=== PATIENT | male | born 1985 | race American Indian/Alaskan Native ===

== ENCOUNTER 2018-12-30 11:39 | Emergency (ER) | payer MEDICAID, OTHER ==
[2018-12-30] MEDS ORDERED: Diphtheria,Pertussis(Acell),Tetanus Vaccine 0.5 ML Syringe IM ONE (11:50)
[2018-12-30] MEDS ORDERED: Acetaminophen/HYDROcodone 325-5 MG Tab PO ONE (11:59)
[2018-12-30] MEDS ORDERED: ceFAZolin 1 GM in Premix Bag 1 BAG IV ONE (12:31)
[2018-12-30] MEDS ORDERED: LORazepam 2 MG/ML SDV IVPUSH ONE (12:39)
--- NOTE | 2018-12-30 12:39 | EDM.PDOC ---
ED HPI GENERAL MEDICAL PROBLEM - General Chief Complaint: Laceration Stated Complaint: CUT ON RT HAND Time Seen by Provider: 12/30/18 11:43 Source of Information: Reports: Patient History Limitations: Reports: No Limitations - History of Present Illness INITIAL COMMENTS - FREE TEXT/NARRATIVE: HISTORY AND PHYSICAL: History of present illness: Patient is a 33-year-old male who presents to the emergency room with complaints of a laceration to the left palmar surface of his hand. He states that he was trying to unjam a nail gun when the nail hit the left hand near the base of the left thumb. Bleeding is controlled with pressure. Patient has exquisite tenderness with palpation. Denies any numbness or tingling in the distal digit. Unsure of his last tetanus Patient denies any fever, chills, headache, change in vision, syncope or near syncope. Denies any chest pain, back pain, shortness of breath or cough. Denies any abdominal pain, nausea, vomiting, diarrhea, constipation or dysuria. Has not noted any blood in urine or stool. Patient has been eating and drinking appropriately. Review of systems: As per history of present illness and below otherwise all systems reviewed and negative. Past medical history: As per history of present illness and as reviewed below otherwise noncontributory. Surgical history: As per history of present illness and as reviewed below otherwise noncontributory. Social history: See social history for further information Family history: As per history of present illness and as reviewed below otherwise noncontributory. Physical exam: General: Well-developed and well-nourished 33-year-old male. Alert and oriented. Nontoxic appearing, very anxious and appears uncomfortable. HEENT: Atraumatic, normocephalic, pupils equal and reactive bilaterally, negative for conjunctival pallor or scleral icterus, mucous membranes moist, TMs normal bilaterally, throat clear, neck supple, nontender, trachea midline. No drooling or trismus noted. No meningeal signs. No hot potato voice noted. Lungs: Clear to auscultation, breath sounds equal bilaterally, chest nontender. Heart: S1S2, regular rate and rhythm without overt murmur Abdomen: Soft, nondistended, nontender. Pelvis: Stable nontender. Genitourinary: Deferred. Rectal: Deferred. Skin: "X" shaped laceration wound to the palmar surface of left hand near the base of the thumb. Otherwise skin is intact, warm, dry. No lesions or rashes noted. Extremities: See SKIN. Moves all extremities per self with difficulty or deficits, appears to have no tendon involvement. Able to make closed fist and open/extend hand. Neurovascular unremarkable. Neuro: Awake, alert, oriented. Cranial nerves II through XII unremarkable. Cerebellum unremarkable. Motor and sensory unremarkable throughout. Exam nonfocal. Notes: X-ray shows that there is foreign material in the laceration wound. Radiology describes a bandlike metallic density projecting over the lower aspect of the fifth metacarpal with adjacent soft tissue swelling. This is not visible when cleansing the area. 1% lidocaine was used to anesthetize the area. Patient did not tolerate 1230: Dr. Monique Aceves was consulted on this case. She is currently in surgery and unavailable to approximately 3 PM. Patient will wait in the emergency room and kept comfortable until she is able to evaluate this patient. Moist, sterile, gentle pressure dressing was applied to the lacerated area. Patient is very restless in the room. He states he is very anxious about "getting my hand fixed". We'll give him 1 mg of Ativan while he is waiting for comfort purposes. Vital signs remain stable. Significant other remains at bedside. Patient is resting easily and quiet on the cot with his eyes closed. Vital signs remain stable. Waiting the hand surgeon for reevaluation. 1500: Dr Aceves here to see patient. Ketan was able to removed the FB along with wound repair Dr. Aceves wrote prescriptions for the patient and discussed discharge instructions we'll have the patient follow up with her in 2 weeks. Supportive care measures were reviewed and discussed. Voices understanding and is agreeable to plan of care. Denies any further questions or concerns at this time. Diagnostics: X-ray Therapeutics: Ancef, Tdap, Minot, Wound Care, 1% lidocaine Impression: Hand injury, right Laceration Foreign body removal Plan: Please take your medications that were prescribed by Dr. Aceves. Follow the instructions that were given to you by her. Follow-up at the specialty clinic in 2 weeks as you already have arranged. Return to the ED as needed and as discussed. Definitive disposition and diagnosis as appropriate pending reevaluation and review of above. Onset: Today Right Hand Pain Score (Numeric/FACES): 9 - Related Data Allergies Allergy/AdvReac Type Severity Reaction Status Date / Time codeine Allergy Mild Redness Verified 12/30/18 11:46 Home Meds: Home Meds ClonazePAM [KlonoPIN] 1 mg PO BID 12/30/18 [History] FLUoxetine [PROzac] 10 mg PO DAILY 12/30/18 [History] QUEtiapine [SEROquel] 15 mg PO DAILY 12/30/18 [History] Past Medical History Gastrointestinal History: Reports: None Psychiatric History: Reports: Anxiety, Bipolar, Depression - Past Surgical History GI Surgical History: Reports: Hernia Repair/Other Social & Family History - Family History Family Medical History: Noncontributory - Tobacco Use Smoking Status *Q: Current Every Day Smoker Years of Tobacco use: 1 Packs/Tins Daily: 20 - Caffeine Use Caffeine Use: Reports: None - Recreational Drug Use Recreational Drug Use: Yes Recreational Drug Type: Reports: Marijuana/Hashish Recreational Drug Use Frequency: Weekly ED ROS GENERAL - Review of Systems Review Of Systems: ROS reveals no pertinent complaints other than HPI. ED EXAM, SKIN/RASH Exam: See Below (See dictation) Course - Vital Signs Last Recorded V/S: Last Vital Signs Temp 97.8 F 12/30/18 11:48 Pulse 56 L 12/30/18 14:39 Resp 18 12/30/18 14:39 BP 147/93 H 12/30/18 14:39 Pulse Ox 98 12/30/18 14:39 - Orders/Labs/Meds Orders: Active Orders 24 hr Category Date Time Status Vaccines to be Administered [RC] PER UNIT ROUTINE Care 12/30/18 11:50 Active Meds: Medications Discontinued Medications Generic Name Dose Route Start Last Admin Trade Name Javi PRN Reason Stop Dose Admin Hydrocodone Bitart/Acetaminophen 1 tab 12/30/18 11:59 12/30/18 12:08 Minot 325-5 Mg PO 12/30/18 12:00 1 tab ONETIME ONE Administration Bupivacaine HCl Confirm 12/30/18 14:44 Sensorcaine-Mpf 0.25% Administered 12/30/18 14:45 Dose 10 ml .ROUTE .STK-MED ONE Diphtheria/Tetanus/Acell Pertussis 0.5 ml 12/30/18 11:50 12/30/18 12:02 Adacel IM 12/30/18 11:51 0.5 ml .ONCE ONE Administration Cefazolin Sodium/Dextrose 1 gm 50 mls @ 100 mls/hr 12/30/18 12:31 12/30/18 12 :49 / Premix IV 12/30/18 13:00 100 mls/hr ONETIME ONE Administration Lidocaine HCl 10 ml 12/30/18 11:50 12/30/18 12:02 Xylocaine-Mpf 1% INJECT 12/30/18 11:51 10 ml ONETIME ONE Administration Lidocaine/Epinephrine Confirm 12/30/18 14:44 Xylocaine 1% With Epinephrine 1:100,000 Administered 12/30/18 14:45 Dose 20 ml .ROUTE .STK-MED ONE Lorazepam 1 mg 12/30/18 12:39 12/30/18 12:48 Ativan IVPUSH 12/30/18 12:40 1 mg ONETIME ONE Administration Departure - Departure Time of Disposition: 15:30 Disposition: Home, Self-Care 01 Clinical Impression: Laceration, Removal of foreign body Injury of right hand Qualifiers: Encounter type: initial encounter Qualified Code(s): S69.91XA - Unspecified injury of right wrist, hand and finger(s), initial encounter - Discharge Information Instructions: Puncture Wound, [id number], Laceration Care, Adult, Easy-to- Read Referrals: PCP,None [Primary Care Provider] - Forms: ED Department Discharge Additional Instructions: The following information is given to patients seen in the emergency department who are being discharged to home. This information is to outline your options for follow-up care. We provide all patients seen in our emergency department with a follow-up referral. The need for follow-up, as well as the timing and circumstances, are variable depending upon the specifics of your emergency department visit. If you don't have a primary care physician on staff, we will provide you with a referral. We always advise you to contact your personal physician following an emergency department visit to inform them of the circumstance of the visit and for follow-up with them and/or the need for any referrals to a consulting specialist. The emergency department will also refer you to a specialist when appropriate. This referral assures that you have the opportunity for follow-up care with a specialist. All of these measure are taken in an effort to provide you with optimal care, which includes your follow-up. Under all circumstances we always encourage you to contact your private physician who remains a resource for coordinating your care. When calling for follow-up care, please make the office aware that this follow-up is from your recent emergency room visit. If for any reason you are refused follow-up, please contact the [facility] Emergency Department at and asked to speak to the emergency department charge nurse. [facility] Specialty Care - Plastic Surgery: DR ACEVES [facility] [address] [place] [address], [address] [place] [address] Please take your medications that were prescribed by Dr. Aceves. Follow the instructions that were given to you by her. Follow-up at the specialty clinic in 2 weeks as you already have arranged. Return to the ED as needed and as discussed. - My Orders Last 24 Hours: My Active Orders 12/30/18 11:50 Vaccines to be Administered [RC] PER UNIT ROUTINE - Assessment/Plan Last 24 Hours: My Active Orders 12/30/18 11:50 Vaccines to be Administered [RC] PER UNIT ROUTINE
--- NOTE | 2018-12-30 12:55 | CR ---
EXAMINATION: Right hand HISTORY: Injury COMPARISON: None TECHNIQUE: 3 views FINDINGS/IMPRESSION: There is no acute osseous abnormality, dislocation, or fracture. Bone mineralization and joint spaces are preserved. There are bandlike metallic densities are noted projecting over the lower aspect of the fifth metacarpal with adjacent soft tissue swelling.
[2018-12-30] MEDS ORDERED: Lidocaine 1% with EPINEPHrine 1:100,000 20 ML MDV ONE (14:44)
[2018-12-30] MEDS ORDERED: Bupivacaine 0.25% 10 ML SDV ONE (14:44)
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
== END 2018-12-30 15:50 | disposition home or self-care (01) ==
LOC: MW.ED 11:39
DX: S61.421A Laceration with foreign body of right hand, initial encounter (principal); W29.4XXA Contact with nail gun, initial encounter; F17.210 Nicotine dependence, cigarettes, uncomplicated; F41.9 Anxiety disorder, unspecified; F31.9 Bipolar disorder, unspecified
CPT/HCPCS: 12001; 73130; 90471; 90715; 96365; 96375; 99283; A9270; J0690; J2001; J2060; 99284

== ENCOUNTER 2019-03-02 04:28 | Emergency (ER) | payer MEDICAID ==
--- NOTE | 2019-03-02 05:04 | EDM.PDOC ---
ED HPI GENERAL MEDICAL PROBLEM - General Chief Complaint: General Stated Complaint: MEDICAL CLEARANCE Time Seen by Provider: 03/02/19 04:59 - History of Present Illness INITIAL COMMENTS - FREE TEXT/NARRATIVE: HISTORY AND PHYSICAL: History of present illness: Patient 34 year old male in custody of law enforcement presents for medical clearance she has no complaints Review of systems: As per history of present illness and below otherwise all systems reviewed and negative. Past medical history: As per history of present illness and as reviewed below otherwise noncontributory. Surgical history: As per history of present illness and as reviewed below otherwise noncontributory. Social history: No reported history of drug or alcohol abuse. Family history: As per history of present illness and as reviewed below otherwise noncontributory. Physical exam: HEENT: Atraumatic, normocephalic, pupils reactive, negative for conjunctival pallor or scleral icterus, mucous membranes moist, throat clear, neck supple, nontender, trachea midline. Lungs: Clear to auscultation, breath sounds equal bilaterally, chest nontender. Heart: S1S2, regular, negative for clicks, rubs, or JVD. Abdomen: Soft, nondistended, nontender. Negative for masses or hepatosplenomegaly. Negative for costovertebral tenderness. Pelvis: Stable nontender. Genitourinary: Deferred. Rectal: Deferred. Extremities: Atraumatic, negative for cords or calf pain. Neurovascular unremarkable. Neuro: Awake, alert, oriented. Cranial nerves II through XII unremarkable. Cerebellum unremarkable. Motor and sensory unremarkable throughout. Exam nonfocal. Diagnostics: None Therapeutics: None Impression: #1 medically clear for incarceration Definitive disposition and diagnosis as appropriate pending reevaluation and review of above. - Related Data Allergies Allergy/AdvReac Type Severity Reaction Status Date / Time codeine Allergy Mild Redness Verified 03/02/19 04:35 Home Meds: Home Meds QUEtiapine [SEROquel] 0 mg PO DAILY 12/30/18 [History] Past Medical History Gastrointestinal History: Reports: None Psychiatric History: Reports: Anxiety, Bipolar, Depression - Past Surgical History GI Surgical History: Reports: Hernia Repair/Other Social & Family History - Family History Family Medical History: Noncontributory - Tobacco Use Smoking Status *Q: Current Every Day Smoker Years of Tobacco use: 15 Packs/Tins Daily: 2 - Caffeine Use Caffeine Use: Reports: None - Recreational Drug Use Recreational Drug Use: No ED ROS GENERAL - Review of Systems Review Of Systems: ROS reveals no pertinent complaints other than HPI. ED EXAM, GENERAL - Physical Exam Exam: See Below (See dictation) Course - Vital Signs Last Recorded V/S: Last Vital Signs Temp 36.1 C 03/02/19 04:30 Pulse 52 L 03/02/19 04:30 Resp 18 03/02/19 04:30 BP 116/73 03/02/19 04:30 Pulse Ox 100 03/02/19 04:30 Departure - Departure Time of Disposition: 05:03 Disposition: Home, Self-Care 01 Condition: Good Clinical Impression: Medical clearance for incarceration - Discharge Information Referrals: PCP,None [Primary Care Provider] - Additional Instructions: The following information is given to patients seen in the emergency department who are being discharged to home. This information is to outline your options for follow-up care. We provide all patients seen in our emergency department with a follow-up referral. The need for follow-up, as well as the timing and circumstances, are variable depending upon the specifics of your emergency department visit. If you don't have a primary care physician on staff, we will provide you with a referral. We always advise you to contact your personal physician following an emergency department visit to inform them of the circumstance of the visit and for follow-up with them and/or the need for any referrals to a consulting specialist. The emergency department will also refer you to a specialist when appropriate. This referral assures that you have the opportunity for followup care with a specialist. All of these measure are taken in an effort to provide you with optimal care, which includes your followup. Under all circumstances we always encourage you to contact your private physician who remains a resource for coordinating your care. When calling for followup care, please make the office aware that this follow-up is from your recent emergency room visit. If for any reason you are refused follow-up, please contact the [facility] emergency department at and asked to speak to the emergency department charge nurse. Follow-up primary medical doctor as needed as discussed return as needed as discussed
== END 2019-03-02 05:15 ==
LOC: MW.ED 04:28
DX: Z02.89 Encounter for other administrative examinations (principal)
CPT/HCPCS: 99282; 99283